=== PATIENT | male | born 1995 | race Caucasian/White ===

== ENCOUNTER 2019-04-02 06:04 | Inpatient (IN) | payer MEDICAID ==
[2019-04-02] VITALS (18 sets, daily range): BP systolic 99–146; BP diastolic 60–109; Ht 170.2 cm; Wt 57.1 kg
[~2019-04-02] VITALS: Ht 170.2 cm; Wt 57.1 kg
[2019-04-02] MEDS ORDERED: PROZAC10 MG PO (07:20)
[2019-04-02] MEDS ORDERED: ACETAMINOPHEN500 M1 PO (07:21)
[2019-04-02] MEDS ORDERED: ADVIL200 MG PO (07:22)
[2019-04-02] MEDS ORDERED: DIPHEDRYL25 MG PO (07:23)
[2019-04-02 07:39] LABS: HEMATOCRIT 40.5 % (42.0-54.0); HEMOGLOBIN 14.1 g/dL (13.5-17.5); MCH 30.1 pg (26.0-34.0); MCHC 34.8 g/dL (31.0-37.0); MCV 86.5 fL (80.0-100.0); MEAN PLATELET VOLUME 9.5 fL (7.4-10.4); PLATELET COUNT 192 10x3/uL (130-400); RBC 4.68 10x6/uL (4.20-6.10); RDW 13.1 % (11.5-14.5); WBC 14.5 10x3/uL (4.8-10.8)
[2019-04-02 07:41] LABS: ALBUMIN 3.7 g/dL (3.4-5.0); ANION GAP 15.7 mmol/L (8-16); BILIRUBIN - TOTAL 0.71 mg/dL (0.2-1.3); CALCIUM 7.8 mg/dL (8.5-10.1); CREATININE - SERUM 1.3 mg/dL (0.6-1.3); MAGNESIUM - SERUM 1.7 mg/dL (1.8-2.4); POTASSIUM - SERUM 3.7 mmol/L (3.5-5.1); PROTEIN - SERUM 6.9 g/dL (6.4-8.2)
[2019-04-02 07:48] LABS: APTT 27.4 SECONDS (22.8-39.4); INR 1.04 (0.85-1.17); PROTIME 13.1 SECONDS (11.6-15.0)
[2019-04-02 08:15] LABS: LYMPHOCYTES 12 % (15-50); MONOCYTES 6 % (2-11); NEUTROPHILS 79 % (40-80); PLATELET ESTIMATE NORMAL
--- NOTE | 2019-04-02 08:40 | NUR ---
POISON CONTROL CALLED GIVEN UPDATE NEW ORDERS RECIEVED. DR PAULINO CALLED GIVEN UDPATE WHAT POISON COLTROL STATED, NEW ORDERS RECEIVED. WILL ADM.
--- NOTE | 2019-04-02 10:30 | NUR ---
PT TO CT VIA HOSPITAL STAFF
--- NOTE | 2019-04-02 11:13 | NUR ---
PHONE CALL RECEIVED FROM WOMAN STATING "I AM SHERRIE GOVEA AND I AM NEEDING AN UPDATE." YOAV CHANCE STATED I CANNOT CONFIRM OR DENY IF I HAVE A PATIENT BY THAT NAME. WOMAN ON PHONE STATED SHE KNEW PT WAS IN ER AND TRANSFERED TO ICU. YOAV CHANCE STATED AT THAT TIME, I CANNOT CONFIRM OR DENY IF WE HAVE A PT BY THAT NAME, THE BEST ADVICE I CAN GIVE YOU IF YOU NO YOU HAVE HAD A LOVED ONE COME THROUGH OUR ER IS TO CALL NEXT OF KIN IF SOMEONE BROUGHT THE PATIENT IN. AT THIS TIME WOMAN STATED SHERRIE'S MOM IS NOT ANSWERING HER PHONE AND SHE JUST WANTED TO NO IF PT WAS ALIVE OR NOT. YOAV CHANCE STATED AGAIN I CANNOT COMFIRM OR DENY IF I HAVE A PT BY THAT NAME. AT THIS POINT WOMAN HUNG UP THE PHONE. PHONE CONFERSATION WITNESSED BY SURAJ CHANCE.
--- NOTE | 2019-04-02 12:43 | NUR ---
PT MOTHER AT BEDSIDE, PT MOTHER HAS MITZY ON OWN PERSONAL CELL PHONE. YOAV CHANCE AND DR PAULINO ATTEMPTED TO GIVE MOTHER UPDATE ON FAMILY MEMBER, MOTHER AND MITZY GOT AGGITATED WHEN DR PAULINO WAS TRYING TO EXPLAIN NOT TO ENABLE PT WHEN COMING OUT OF THIS OVERDOSE AND HE WOULD NEED HELP FROM ANOTHER FACILITY AND PER OUR POLICY WE DO NOT ALLOW VISITORS WITH OVERDOSE PATIENTS. MITZY YELLED AT DR PAULINO THROUGH THE PHONE CALLING HIM A "FUCKING ASSHOLE" AND OTHER PROFANITY. AT THIS TIME THE MOTHER STORMED OUT OF THE DOOR INTO DR PAULINO'S FACE DEMANDING HIS NAME AND SNATCHED HIS BADGE FROM HIS UNIFORM. THIS WAS WITNESSED BY YOAV CHANCE AND BIONCA RN. MOTHER WAS TOLD PER POLICY AT THIS TIME SHE WAS NO LONGER ALLOWED IN UNIT. MOTHER LEFT UNIT AT THIS TIME. UNIT DOORS LOCKED.
--- NOTE | 2019-04-02 15:00 | NUR ---
REASESSMENT COMPLETE, SEE CHART. VSS. WILL CONTINUE TO MONITOR
--- NOTE | 2019-04-02 17:07 | NUR ---
VSS, ORAL CARE COMPLETE.
--- NOTE | 2019-04-02 19:00 | NUR ---
REPORT RECEIVED, CARE ASSUMED. PT IS IN BED INTUBATED AND SEDATED. PT REPOSITIONED FOR COMFORT. ORAL CARE PERFORMED. INITIAL ASSESSMENT COMPLETED, SEE FLOWSHEET FOR DETAILS. NO NEEDS NOTED AT THIS TIME. WILL CONTINUE TO MONITOR.
--- NOTE | 2019-04-02 21:00 | NUR ---
PT IS LAYING IN BED INTUBATED AND SEDATED. PT REPOSITIONED FOR COMFORT. ORAL CARE PERFORMED. NO FURTHER NEEDS NOTED AT THIS TIME. NO SIGNS OF ACUTE DISTRESS. WILL CONTINUE TO MONITOR.
--- NOTE | 2019-04-02 23:00 | NUR ---
REASSESSMENT COMPLETED, SEE FLOWSHEET FOR DETAILS. PT IS LAYING IN BED INTUBATED AND SEDATED AT THIS TIME. PT REPOSITIONED FOR COMFORT. NO SIGNS OF ACUTE DISTRESS NOTED. WILL CONTINUE TO MONITOR.
[2019-04-03] VITALS (24 sets, daily range): BP systolic 113–157; BP diastolic 71–94
--- NOTE | 2019-04-03 01:00 | NUR ---
PT IS IN BED INTUBATED AND SEDATED. PT REPOSITIONED FOR COMFORT. ORAL CARE PERFORMED. NO FURTHER NEEDS NOTED. NO SIGNS OF ACUTE DISTRESS. WILL CONTINUE TO MONITOR.
--- NOTE | 2019-04-03 03:00 | NUR ---
REASSESSMENT COMPLETED, SEE FLOWSHEET FOR DETAILS. PT IS IN BED INTUBATED AND SEDATED. PT REPOSITIONED FOR COMFORT. ORAL CARE PERFORMED. NO FURTHER NEEDS NOTED AT THIS TIME. NO SIGNS OF ACUTE DISTRESS. WILL CONTINUE TO MONITOR.
[2019-04-03 04:27] LABS: BASOPHILS 0.1 % (0-2); EOSINOPHILS 0.4 % (0-7); HEMATOCRIT 34.1 % (42.0-54.0); HEMOGLOBIN 11.8 g/dL (13.5-17.5); IMMATURE GRANULOCYTES 0.3 % (0-5); LYMPHOCYTES 10.5 % (15-50); MCH 29.6 pg (26.0-34.0); MCHC 34.6 g/dL (31.0-37.0); MCV 85.7 fL (80.0-100.0); MEAN PLATELET VOLUME 9.9 fL (7.4-10.4); MONOCYTES 6.9 % (2-11); NEUTROPHILS 81.8 % (40-80); PLATELET COUNT 184 10x3/uL (130-400); RBC 3.98 10x6/uL (4.20-6.10); RDW 13.3 % (11.5-14.5); WBC 12.4 10x3/uL (4.8-10.8)
[2019-04-03 04:52] LABS: ANION GAP 10.7 mmol/L (8-16); CALCIUM 7.6 mg/dL (8.5-10.1); CARBON DIOXIDE 31.2 mmol/L (21.0-32.0); CREATININE - SERUM 1.4 mg/dL (0.6-1.3); MAGNESIUM - SERUM 1.7 mg/dL (1.8-2.4); PHOSPHOROUS 4.4 mg/dL (2.5-4.9)
[2019-04-03 04:53] LABS: POTASSIUM - SERUM 2.9 mmol/L (3.5-5.1)
--- NOTE | 2019-04-03 07:00 | NUR ---
BEDSIDE SHIFT REPORT COMPLETE. SHIFT ASSESSMENT AND ORAL CARE DONE, NO CHANGES NOTED. WILL CONTINUE TO MONITOR.
[2019-04-03] MEDS ORDERED: GEODON20 MG PO (07:38)
--- NOTE | 2019-04-03 09:00 | NUR ---
MEDS GIVEN PER MAR. ORAL CARE AND REPOSITIONING DONE, VSS. WILL CONTINUE TO MONITOR.
[2019-04-03 10:16] LABS: UDS - AMPHET NEGATIVE QUAL (NEGATIVE); UDS - BARB NEGATIVE QUAL (NEGATIVE); UDS - BENZO POSITIVE QUAL (NEGATIVE); UDS - COCAINE NEGATIVE QUAL (NEGATIVE); UDS - OPIATE NEGATIVE QUAL (NEGATIVE); UDS - PCP NEGATIVE QUAL (NEGATIVE); UDS - THC NEGATIVE QUAL (NEGATIVE)
[2019-04-03 10:52] LABS: APPEARANCE CLEAR (CLEAR); BACTERIA FEW /hpf (NONE SEEN); BILIRUBIN NEGATIVE (NEGATIVE); COLOR YELLOW (YELLOW); EPITHELIAL CELLS 0-5 /hpf (0-5); GLUCOSE NEGATIVE (NEGATIVE); KETONE SMALL mg/dL (NEGATIVE); NITRITE NEGATIVE (NEGATIVE); PROTEIN NEGATIVE (NEGATIVE); UROBILINOGEN NORMAL (NORMAL); WHITE CELLS - URINE 0-5 /hpf (0-5)
[2019-04-03 10:55] LABS: MUCUS <1+ /lpf (NONE SEEN)
--- NOTE | 2019-04-03 11:00 | NUR ---
REASESSMENT COMPLETE, SEE CHART. VSS. WILL CONTINUE TO MONITOR.
--- NOTE | 2019-04-03 11:30 | NUR ---
DR DAMIAN AT BEDSIDE, NEW ORDERS GIVEN.
--- NOTE | 2019-04-03 13:00 | NUR ---
ORAL CARE AND REPOSITIONING DONE. VSS.
--- NOTE | 2019-04-03 13:25 | NUR ---
PT EXTUBATED PER ORDERS, RT AT BEDSIDE. NO ISSUES. WILL CONTINUE TO MONITOR.
--- NOTE | 2019-04-03 14:32 | NUR ---
PT ASSESSED A HIGH RISK AND RESULTS REVIEWED WITH DR. WHELAN AND CHARGE NURSE. SITTER ORDERED FOR SUICIDE WATCH. SAFETY PLAN COMPLETED AND RESOURCES GIVEN. PT TO BE PLACED IN PAPERSCRUBS AND SAFETY PRECAUTIONS IN PLACE. PT WAS BEING MONITORED BY A NURSE WHEN I ARRIVED TO DO ASSESSMENT.
--- NOTE | 2019-04-03 15:00 | NUR ---
REASSESSMENT COMPLETE, SEE CHART. O2 SAT 97 ON 3L NC. VSS.
--- NOTE | 2019-04-03 17:00 | NUR ---
L HAND PERIPHERAL AND L AC PERIPHERAL IV SALINE LOCKED. SITTER AT BEDSIDE. VSS. WILL MONITOR.
--- NOTE | 2019-04-03 19:00 | NUR ---
PT SETTING UP TO BEDISDE EATING SOME SUPPER, NO DISTRESS NOTED AT THIS TIWE
--- NOTE | 2019-04-03 19:03 | MORECARE ---
CASE MANAGEMENT DISCHARGE SUMMARY PATIENT: SHERRIE SZYMANSKI UNIT: [id number] ADM DATE: 04/02/19 AGE: 23 : [birth year] SEX: M ROOM/BED: D.2304 AUTHOR: NANCI COOK PHYSICIAN: REFERRING PHYSICIAN: GARRETT TOTH MD DATE OF SERVICE: 04/03/19 Discharge Plan Patient Name: SHERRIE SZYMANSKI [facility] [facility] 1995 Planned Disposition: Anticipated Discharge Date: Discharge Date: Expected LOS: Initial Reviewer: [email or web address] Initial Review Date: 04/02/2019 Generated: 04/03/19 8:03 pm Patient Name: SHERRIE SZYMANSKI Page [id number] at 1903 All edits/amendments must be made on the electronic document DICTATION DATE: 04/03/191902 MACHINE ACCOUNTANT: PRUDENCIO 04/03/191902 RPT#: [id number] DC DATE: STATUS: ADM IN [facility] [address] [place] [address] END OF REPORT
--- NOTE | 2019-04-03 19:11 | NUR ---
PT CONTINUES TO BE TEARFUL AND DEPRESSED. PT STATED, "I THOUGHT I HAD TAKEN ENOUGH PILLS TO END IT." REVIEWED COPING SKILLS WITH PT AND DISCUSSED HIS FAMILY AND DAUGHTER. REVIEWED SAFETY PLAN AND PT CONTRACTED FOR SAFETY. SITTER AT BEDSIDE.
--- NOTE | 2019-04-03 19:16 | MORECARE ---
CASE MANAGEMENT DISCHARGE SUMMARY PATIENT: SHERRIE SZYMANSKI UNIT: [id number] ADM DATE: 04/02/19 AGE: 23 : [birth year] SEX: M ROOM/BED: D.2304 AUTHOR: NANCI COOK PHYSICIAN: REFERRING PHYSICIAN: GARRETT TOTH MD DATE OF SERVICE: 04/03/19 Discharge Plan Patient Name: SHERRIE SZYMANSKI Facility: [facility]:[place] : 1995 Planned Disposition: Anticipated Discharge Date: Discharge Date: Expected LOS: Initial Reviewer: [email or web address] Initial Review Date: 04/02/2019 Generated: 04/03/19 8:16 pm Comments DCP- Discharge Planning Updated by [email or web address]: Latonia Licea on 04/03/19 6:[address] CM attempted to speak with patient post extubation earlier today. Patient wasn't able to answer any questions regarding address or living situation. There isn't any phone numbers listed on face sheet and patient is unable to give any phone numbers of contacts. Patient states that his stuff is missing and that is where his contacts are. Patient couldn't tell CM if he has insurance or not. Nursing stated that patient's mother and have been in to visit. CM will continue to attempt to get with family to finish d/c plan. CM will continue to follow and assist as needed with discharge planning / needs. Last DP export: 04/03/19 6:03 p Patient Name: SHERRIE SZYMANSKI Page [phone] at 1916 All edits/amendments must be made on the electronic document DICTATION DATE: 04/03/191915 FOOTWEAR SALES REPRESENTATIVE: PRUDENCIO 04/03/191915 RPT#: [id number] DC DATE: STATUS: ADM IN [facility] [address] [facility] [place] [address] END OF REPORT
--- NOTE | 2019-04-03 21:00 | NUR ---
PT RESTING IN BED WITH EYES CLOSED, PT AWAKES TO NAME AND FOLLOWING COMMANDS, NO DISTRESS NOTED AT THIS TIME
--- NOTE | 2019-04-03 23:00 | NUR ---
PT RESTING WITH EYES CLOSED NO DISTRESS NOTED
[2019-04-04] VITALS (17 sets, daily range): BP systolic 127–145; BP diastolic 65–106
--- NOTE | 2019-04-04 01:00 | NUR ---
PT SITTING UP IN BED GETTING A BREATHING TREATMENT. RESP EVEN NON LABORED, NO DISTRESS NOTED
[2019-04-04 04:36] LABS: BASOPHILS 0.3 % (0-2); EOSINOPHILS 1.3 % (0-7); HEMATOCRIT 32.4 % (42.0-54.0); HEMOGLOBIN 11.1 g/dL (13.5-17.5); IMMATURE GRANULOCYTES 0.2 % (0-5); MCHC 34.3 g/dL (31.0-37.0); MCV 87.6 fL (80.0-100.0); MEAN PLATELET VOLUME 9.8 fL (7.4-10.4); MONOCYTES 8.7 % (2-11); NEUTROPHILS 77.5 % (40-80); PLATELET COUNT 159 10x3/uL (130-400); RDW 13.6 % (11.5-14.5); WBC 11.9 10x3/uL (4.8-10.8)
[2019-04-04 05:01] LABS: CALCIUM 8.1 mg/dL (8.5-10.1); CARBON DIOXIDE 26.7 mmol/L (21.0-32.0); CHLORIDE - SERUM 103 mmol/L (98-107); MAGNESIUM - SERUM 1.9 mg/dL (1.8-2.4); POTASSIUM - SERUM 3.5 mmol/L (3.5-5.1); SODIUM 137 mmol/L (136-145)
[2019-04-04 05:18] LABS: CALC OSMOLALITY 271 mosm/kg (275-300); CREATININE - SERUM 0.9 mg/dL (0.6-1.3); GLUCOSE 98 mg/dL (74-106); UREA NITROGEN 6 mg/dL (7-18); eGFR NON AFRICAN AMERICAN > 90 mL/min (90-120)
--- NOTE | 2019-04-04 07:00 | NUR ---
BEDSIDE REPORT COMPLETE. SHIFT ASSESSMENT AND ORAL CARE DONE. PT IN BED RESTING QUIETLY, SITTER AT BEDSIDE. VSS. CALL LIGHT IN REACH.
--- NOTE | 2019-04-04 09:00 | NUR ---
D/C'D L AC PERIPHERAL IV DUE TO OCCLUSION. RESITED TO L FOREARM PERIPHERAL. MEDS GIVEN PER NOV. VSS, PT RESTING QUIETLY. SITTER AT BEDSIDE.
--- NOTE | 2019-04-04 11:00 | NUR ---
CHG BATH, LINEN CHANGE, AND ORAL CARE COMPLETE. PAPER SCRUBS PROVIDED.
--- NOTE | 2019-04-04 12:08 | NUR ---
Nutrition follow-up: Pt extubated 04/03; diet advanced to regular as tolerated Wt: 125# labs reviewed Will provide food choices with selective menus and honor food preferences. RDN following.
--- NOTE | 2019-04-04 13:11 | NUR ---
PATIENT IN BED RESTING QUIETLY, I OFFERED HIM HIS LUNCH TRAY AND HE DOES NOT WANT IT. SITTER AT BEDSIDE, WILL CONTINUE TO MONITOR.
--- NOTE | 2019-04-04 15:00 | NUR ---
PATIENT REFUSES TO EAT ANYTHING, HE STATES HE IS TOO TIRED AND JUST WANTS TO SLEEP. VSS. SITTER AT BEDSIDE.
--- NOTE | 2019-04-04 17:00 | NUR ---
PT SITTING UP IN CHAIR, ATE 100% OF DINNER. SITTER AT BEDSIDE
--- NOTE | 2019-04-04 17:57 | MORECARE ---
CASE MANAGEMENT DISCHARGE SUMMARY PATIENT: SHERRIE SZYMANSKI UNIT: [id number] ADM DATE: 04/02/19 AGE: 23 : [birth year] SEX: M ROOM/BED: D.2304 AUTHOR: NANCI COOK PHYSICIAN: REFERRING PHYSICIAN: GARRETT TOTH MD DATE OF SERVICE: 04/04/19 Discharge Plan Patient Name: SHERRIE SZYMANSKI Facility: [facility]:[place] : 1995 Planned Disposition: Anticipated Discharge Date: Discharge Date: Expected LOS: Initial Reviewer: [email or web address] Initial Review Date: 04/02/2019 Generated: 04/04/19 6:57 pm Comments DCP- Discharge Planning Updated by [email or web address]: Latonia Licea on 04/04/19 4:[address] CM contacted [employer] to see if they have been able to get any information from patient. Stefano stated that they haven't got any information either. Patient wasn't able to give any information to them either. Speech is garbled. CM has been trying to reach family but unable to get in contact with anyone. Patient couldn't give a name or number to call at this time.CM will continue to follow and assist as needed with discharge planning / needs. DCP- Discharge Planning Updated by [email or web address]: Latonia Licea on 04/03/19 6:[address] CM attempted to speak with patient post extubation earlier today. Patient wasn't able to answer any questions regarding address or living situation. There isn't any phone numbers listed on face sheet and patient is unable to give any phone numbers of contacts. Patient states that his stuff is missing and that is where his contacts are. Patient couldn't tell CM if he has insurance or not. Nursing stated that patient's mother and have been in to visit. CM will continue to attempt to get with family to finish d/c plan. CM will continue to follow and assist as needed with discharge planning / needs. Last DP export: 04/03/19 6:16 p Patient Name: SHERRIE SZYMANSKI Page [phone] at 1754 All edits/amendments must be made on the electronic document DICTATION DATE: 04/04/191756 HOTEL OR MOTEL ROOM SERVICE SUPERVISOR: PRUDENCIO 04/04/191756 RPT#: [id number] [place] DATE: STATUS: ADM IN [facility] [address] [place] [address] END OF REPORT
--- NOTE | 2019-04-04 19:00 | NUR ---
PT SITTING UP IN A CHAIR AT THE BEDSIDE. PT IS ALERT AND AWAKE. RESP EVEN NON LABORED. PT ADVISED THAT HE DOING OKAY, BUT IS STIFF AND SORE ALL OVER. PT INFORMED THAT HE WAS GOING TO BE MOVED TO A DIFFERENT ROOM SOON. PT VERBALIZED UNDERSTANDING
--- NOTE | 2019-04-04 20:06 | NUR ---
PT REPORT CALLED TO MERON ORTIZ. PT TO BE TRANSFERRED TO THE FLOOR VIA W/C
[2019-04-05 00:49] VITALS: BP 117/71
[2019-04-05 05:57] VITALS: BP 109/80
[2019-04-05 06:51] LABS: BASOPHILS 0.5 % (0-2); EOSINOPHILS 6.4 % (0-7); HEMATOCRIT 35.4 % (42.0-54.0); HEMOGLOBIN 11.9 g/dL (13.5-17.5); IMMATURE GRANULOCYTES 0.3 % (0-5); LYMPHOCYTES 23.4 % (15-50); MCH 29.5 pg (26.0-34.0); MCHC 33.6 g/dL (31.0-37.0); MCV 87.8 fL (80.0-100.0); MEAN PLATELET VOLUME 9.7 fL (7.4-10.4); MONOCYTES 10.4 % (2-11); PLATELET COUNT 163 10x3/uL (130-400); RBC 4.03 10x6/uL (4.20-6.10); RDW 13.3 % (11.5-14.5)
[2019-04-05 06:58] LABS: CALC OSMOLALITY 277 mosm/kg (275-300); CALCIUM 8.6 mg/dL (8.5-10.1); CHLORIDE - SERUM 103 mmol/L (98-107); CREATININE - SERUM 0.9 mg/dL (0.6-1.3); GLUCOSE 124 mg/dL (74-106); POTASSIUM - SERUM 3.6 mmol/L (3.5-5.1); SODIUM 139 mmol/L (136-145); eGFR NON AFRICAN AMERICAN > 90 mL/min (90-120)
[2019-04-05 07:00] LABS: UREA NITROGEN 9 mg/dL (7-18)
[2019-04-05 07:03] LABS: WBC 7.9 10x3/uL (4.8-10.8)
[2019-04-05 07:22] VITALS: BP 139/84
--- NOTE | 2019-04-05 07:30 | NUR ---
PT RESTING IN BED, SITTER PRESENT. PT COMPLAINS OF BACK PAIN AND REQUEST APAP. PRN APAP GIVEN ORDERED. SHIFT ASSESSMENT PERFORMED. DENIES ANY OTHER NEEDS. WILL CONT TO FOLLOW POC
--- NOTE | 2019-04-05 10:00 | NUR ---
PT MOM CALLED AND VERBAL APPROVAL GIVEN BY PT TO DISCUSS ANY INFORMATION WITH MOM.
--- NOTE | 2019-04-05 10:07 | MORECARE ---
CASE MANAGEMENT DISCHARGE SUMMARY PATIENT: SHERRIE SZYMANSKI UNIT: [id number] ADM DATE: 04/02/19 AGE: 23 : [birth year] SEX: M ROOM/BED: D.1209 AUTHOR: NANCI COOK PHYSICIAN: REFERRING PHYSICIAN: GARRETT TOTH MD DATE OF SERVICE: 04/05/19 Discharge Plan Patient Name: SHERRIE SZYMANSKI Facility: [facility]:[place] : 1995 Planned Disposition: Psych facility Anticipated Discharge Date: Discharge Date: Expected LOS: Initial Reviewer: [email or web address] Initial Review Date: 04/02/2019 Generated: 04/05/19 11:06 am DCP- Discharge Planning Updated by [email or web address]: Latonia Licea on 04/04/19 4:[address] CM contacted [employer] to see if they have been able to get any information from patient. Stefano stated that they haven't got any information either. Patient wasn't able to give any information to them either. Speech is garbled. CM has been trying to reach family but unable to get in contact with anyone. Patient couldn't give a name or number to call at this time.CM will continue to follow and assist as needed with discharge planning / needs. DCP- Discharge Planning Updated by [email or web address]: Latonia Licea on 04/03/19 6:[address] CM attempted to speak with patient post extubation earlier today. Patient wasn't able to answer any questions regarding address or living situation. There isn't any phone numbers listed on face sheet and patient is unable to give any phone numbers of contacts. Patient states that his stuff is missing and that is where his contacts are. Patient couldn't tell CM if he has insurance or not. Nursing stated that patient's mother and have been in to visit. CM will continue to attempt to get with family to finish d/c plan. CM will continue to follow and assist as needed with discharge planning / needs. Last DP export: 04/04/19 4:57 p Patient Name: SHERRIE SZYMANSKI Page [phone] at 1007 All edits/amendments must be made on the electronic document DICTATION DATE: 04/05/19 100 SURVEY CHIEF: PRUDENCIO 04/05/19 100 RPT#: [id number] [place] DATE: STATUS: ADM IN [facility] [address] [place] [address] END OF REPORT
--- NOTE | 2019-04-05 10:39 | MORECARE ---
CASE MANAGEMENT DISCHARGE SUMMARY PATIENT: SHERRIE SZYMANSKI UNIT: [id number] ADM DATE: 04/02/19 AGE: 23 : [birth year] SEX: M ROOM/BED: D.1209 AUTHOR: NANCI COOK PHYSICIAN: REFERRING PHYSICIAN: GARRETT TOTH MD DATE OF SERVICE: 04/05/19 Discharge Plan Patient Name: SHERRIE SZYMANSKI Facility: [facility]:[place] : 1995 Planned Disposition: Psych facility Anticipated Discharge Date: Discharge Date: Expected LOS: Initial Reviewer: [email or web address] Initial Review Date: 04/02/2019 Generated: 04/05/19 11:39 am Comments DCP- Discharge Planning Updated by [email or web address]: Farhana Keller on 04/05/19 9:[address] TELEPHONE CALL TO [employer]. LEFT A VOICEMAIL AT 1434 REGARDING CONTACT PHONE NUMBERS FOR ASSISTANCE AND INFORMATION. CM ADVISED THE MOTHER THAT [employer] MAY CONTACT HER. DCP- Discharge Planning Updated by [email or web address]: Farhana Keller on 04/05/19 9:[address] CM HAS OBTAINED CONTACT PHONE NUMBERS FOR THE PATIENT'S AND HIS MOTHER. JAMA [phone] . SHE LIVES IN [facility], THEY HAVE BEEN FOR A FEW MONTH. SHE STATES HE HAS BEEN HOMELESS. THEY HAVE A TWO YEAR OLD DAUGHTER WHO IS WITH THE . THE PATIENT REPORTEDLY HAS HAD TWO PREVIOUS SUICIDE ATTEMPTS. SHE STATES HE DID NOT HAVE A PSYCHIATRIST OR COUNSELOR. HE WAS REPORTEDLY ON PROZAC. HE IS A SMOKER. SHE DOES NOT KNOW OF ANY MEDICAL DIAGNOSIS. HE DID HAVE [facility] MEDICAID AT ONE TIME. CHRISTINE GONZALEZ - [phone]- MOTHER 1013 HIS MOTHER CALLED THE NURSE'S STATION TO SPEAK WITH THE NURSE ABOUT HIS STATUS. CM WAS ABLE TO SPEAK WITH HER. SHE HAD JUST PICKED HIM UP 2 DAYS PRIOR TO THIS INCIDENT. HE HAD BEEN IN [place], [place] AND HAD BEEN EVICTED. SHE LIVES AT [address] [place] [address] [place] [address]. SHE STATES SHE HAS HIS WALLET AND BELONGINGS. SHE WISHES FOR HIM TO RECEIVE SOME INPATIENT PSYCH HELP. SHE STATES SHE BROUGHT 2 PAIRS OF PANTS, 2 SHIRTS, A PACK OF NEW UNDERWEAR AND NEW SOCKS TO HIS HOSPITAL ROOM. SHE VERY MUCH WANTS HIM TO GET HELP. HE SEES SE[facility] AT A FAMILY CLINIC IN [place], [place]. SHE PRESCRIBES HIS PROZAC. THE NURSE AND CM EXPLAINED THE PATIENT MUST BE MEDICALLY STABLE BEFORE DISCHARGING TO A PSYCH FACILITY. EXPLAINED CM WILL FOLLOW TO ASSIST. W/ DISCHARGE PLANNING. THE MOTHER WAS VERY HELPFUL AND VERY CONCERNED ABOUT HIS WELL BEING. DCP- Discharge Planning Updated by [email or web address]: Latonia Licea on 04/04/19 4:[address] CM contacted [email or web address] to see if they have been able to get any information from patient. Stefano stated that they haven't got any information either. Patient wasn't able to give any information to them either. Speech is garbled. CM has been trying to reach family but unable to get in contact with anyone. Patient couldn't give a name or number to call at this time.CM will continue to follow and assist as needed with discharge planning / needs. DCP- Discharge Planning Updated by [email or web address]: Latonia Licea on 04/03/19 6:[address] CM attempted to speak with patient post extubation earlier today. Patient wasn't able to answer any questions regarding address or living situation. There isn't any phone numbers listed on face sheet and patient is unable to give any phone numbers of contacts. Patient states that his stuff is missing and that is where his contacts are. Patient couldn't tell CM if he has insurance or not. Nursing stated that patient's mother and have been in to visit. CM will continue to attempt to get with family to finish d/c plan. CM will continue to follow and assist as needed with discharge planning / needs. Last DP export: 04/05/19 9:07 a Patient Name: SHERRIE SZYMANSKI Page [phone] at 1039 All edits/amendments must be made on the electronic document DICTATION DATE: 04/05/19 1039 MANAGER PATIENT: PRUDENCIO 04/05/19 1039 RPT#: [id number] DC DATE: STATUS: ADM IN [facility] [address] [place] [address] END OF REPORT
[2019-04-05 11:10] VITALS: BP 124/76
--- NOTE | 2019-04-05 11:17 | NUR ---
PT RESTING IN BED, DENIES ANY NEEDS AT THIS TIME. WILL CONT TO FOLLOW POC
--- NOTE | 2019-04-05 13:45 | CN ---
PATIENT NAME:SHERRIE SZYMANSKI MEDICAL RECORD: [id number] : [birth year] LOCATION:D. D.1209 ADMIT DATE: 04/02/19 ACCOUNT: [id number] CONSULTING PHYSICIAN: LAST WHELAN MD REFERRING PHYSICIAN: GARRETT TOTH MD DATE OF CONSULTATION: 04/04/2019 IDENTIFYING DATA: The patient is 23 years old and he was admitted to the hospital on a voluntary basis. CHIEF COMPLAINT: Overdose. HISTORY OF PRESENT ILLNESS: The [place], [place] suppose [place]. Apparently, he was at a alliance party and took a large and number of medications. He was unresponsive and was brought to the Emergency Room in [place] and was shipped here for a higher level of care. He was given Narcan, but it was not effective. He was subsequently intubated. He did have a urine drug screen that was positive for benzodiazepines, but no opiates were present. The patient is now extubated. He is softly spoken and his throat is sore from the intubation, but he tells me that he fully intended to kill himself. He starts to cry. He tells me he has a lot of family and personal problems. He also tells me that he is not exactly sure what he took. He says he knows he took some sleeping medicine and some antidepressant medicine. He says he took a lot of pills and again it was with the full intention of dying. He says he still wants to . He is willing to accept some kind of assistance. He denies addiction to opiates. He denies addiction to any drugs or alcohol at this time, but does report a past psychiatric history that includes methamphetamine addiction as well as outpatient treatment for depression. ASSESSMENT: 1. Status post overdose. 2. Major depression. PLAN: Once stabilized, the patient should be transferred to acute inpatient psychiatric care. It is my understanding that he has upper left lobe pneumonia, probably associated with aspiration, but if that has resolved he should be transferred to acute inpatient psychiatric care and he is indeed willing to go. If he is going to require additional hospitalization to treat the pneumonia or any other condition I am not aware of, he does need to have a sitter. If he is here or pass tomorrow or still here tomorrow, I will order antidepressant medications. TRANSINT:[id number] Voice Confirmation ID: [id number] DOCUMENT ID: [id number] LAST WHELAN MD at 1345 CC: [id number] DICTATION DATE: 04/04/191710 KEY WORKER: 04/04/191947 ADM IN [facility] [address] [place] [address]
--- NOTE | 2019-04-05 17:00 | NUR ---
PT REQUEST TO TAKE A SHOWER. SITTER PRESENT IN ROOM TO ASSIST WITH SHOWER. WILL CONT TO FOLLOW POC
[2019-04-05 19:58] VITALS: BP 121/73
[2019-04-06] VITALS: BP 118/71
[2019-04-06 04:00] VITALS: BP 97/64
[2019-04-06 07:00] LABS: BASOPHILS 0.5 % (0-2); EOSINOPHILS 7.6 % (0-7); HEMATOCRIT 32.7 % (42.0-54.0); HEMOGLOBIN 10.9 g/dL (13.5-17.5); IMMATURE GRANULOCYTES 0.3 % (0-5); LYMPHOCYTES 28.5 % (15-50); MCH 29.6 pg (26.0-34.0); MCHC 33.3 g/dL (31.0-37.0); MCV 88.9 fL (80.0-100.0); MEAN PLATELET VOLUME 9.7 fL (7.4-10.4); MONOCYTES 8.8 % (2-11); NEUTROPHILS 54.3 % (40-80); PLATELET COUNT 166 10x3/uL (130-400); RBC 3.68 10x6/uL (4.20-6.10); RDW 13.2 % (11.5-14.5)
[2019-04-06 07:19] LABS: CALC OSMOLALITY 279 mosm/kg (275-300); CALCIUM 8.6 mg/dL (8.5-10.1); CARBON DIOXIDE 28.5 mmol/L (21.0-32.0); CHLORIDE - SERUM 106 mmol/L (98-107); CREATININE - SERUM 0.9 mg/dL (0.6-1.3); GLUCOSE 104 mg/dL (74-106); POTASSIUM - SERUM 3.8 mmol/L (3.5-5.1); SODIUM 141 mmol/L (136-145); UREA NITROGEN 11 mg/dL (7-18); eGFR NON AFRICAN AMERICAN > 90 mL/min (90-120)
[2019-04-06 08:00] VITALS: BP 132/76
--- NOTE | 2019-04-06 10:17 | NUR ---
PT ALERT AND ORIENTED. RR 14 EVEN AND UNLABORED. DENIES PAIN OR NEEDS AT THIS TIME. UP AD PADILLA. SITTER AT BEDSIDE PER SUICIDE RISK PROTOCOL. PT STATES HE "FEELS BETTER MENTALLY TODAY". ASSESSMENT COMPLETE. NO ABNORMALITIES FOUND. LEFT FOREARM PATENT IV SALINE LOCKED. ROOM CLEARED OF PARAPHERNALIA. WILL CONTINUE TO MONITOR.
--- NOTE | 2019-04-06 11:49 | NUR ---
I have reviewed this patient and I concur with the Shift Assessment completed by the Licensed Practical Nurse today this shift.
--- NOTE | 2019-04-06 12:39 | NUR ---
Nutrition Follow Up: Multiple staff present in room at the time of RD visit. Interview deferred at this time. Diet: Regular PO Intake: 61% meal avg (ate 75% of breakfast this am; po intake improving) BM: 04/05/19 Meds and labs reviewed Rec continue current diet. RD following.
[2019-04-06 13:34] VITALS: BP 122/81
[2019-04-06 20:00] VITALS: BP 119/68
[2019-04-07] VITALS: BP 121/75
[2019-04-07 04:00] VITALS: BP 104/71
[2019-04-07 06:37] LABS: BASOPHILS 0.5 % (0-2); EOSINOPHILS 7.9 % (0-7); HEMATOCRIT 36.6 % (42.0-54.0); HEMOGLOBIN 12.4 g/dL (13.5-17.5); IMMATURE GRANULOCYTES 0.6 % (0-5); MCH 29.8 pg (26.0-34.0); MCHC 33.9 g/dL (31.0-37.0); MEAN PLATELET VOLUME 9.4 fL (7.4-10.4); MONOCYTES 11.9 % (2-11); NEUTROPHILS 49.1 % (40-80); PLATELET COUNT 202 10x3/uL (130-400); RBC 4.16 10x6/uL (4.20-6.10); RDW 13.1 % (11.5-14.5); WBC 6.4 10x3/uL (4.8-10.8)
[2019-04-07 06:48] LABS: CALC OSMOLALITY 276 mosm/kg (275-300); CALCIUM 9.5 mg/dL (8.5-10.1); CHLORIDE - SERUM 102 mmol/L (98-107); CREATININE - SERUM 0.8 mg/dL (0.6-1.3); GLUCOSE 94 mg/dL (74-106); POTASSIUM - SERUM 3.7 mmol/L (3.5-5.1); SODIUM 138 mmol/L (136-145); eGFR NON AFRICAN AMERICAN > 90 mL/min (90-120)
[2019-04-07 06:49] LABS: UREA NITROGEN 15 mg/dL (7-18)
--- NOTE | 2019-04-07 07:27 | NUR ---
ROUNDING DONE WTIH PATIENT LAYING ON BACK, HEAD TO LEFT SIDE. SITTER AT BEDSIDE FOR 1/ CARE AND MONITORING. ON ROOM AIR. LEFT FA PIV SEEN WITH SALINE LOCK. ON EP. K+ IS 3.7. WILL MONITOR.
[2019-04-07 08:01] VITALS: BP 134/74
--- NOTE | 2019-04-07 09:44 | MORECARE ---
CASE MANAGEMENT DISCHARGE SUMMARY PATIENT: SHERRIE SZYMANSKI UNIT: [id number] ADM DATE: 04/02/19 AGE: 23 : [birth year] SEX: M ROOM/BED: D.1209 AUTHOR: NANCI COOK PHYSICIAN: REFERRING PHYSICIAN: GARRETT TOTH MD DATE OF SERVICE: 04/07/19 Discharge Plan Patient Name: SHERRIE SZYMANSKI Facility: [facility]:[place] : 1995 Planned Disposition: Psych facility Anticipated Discharge Date: Discharge Date: Expected LOS: Initial Reviewer: [id number] Initial Review Date: 04/02/2019 Generated: 04/07/19 10:43 am Comments DCP- Discharge Planning Updated by [email or web address]: Jennie Smith on 04/07/19 8:[address] Patient Name: SHERRIE SZYMANSKI Admission Status: ER Accout number: [id number] Admission Date: 04-02-2019 : 1995 Admission Diagnosis:PNEUMONITIS DUE TO INHALATION OF FOOD AND VOMIT Attending: GARRETT TOTH Current LOS: 5 Anticipated DC Date: Planned Disposition: Psych facility Primary Insurance: MEDICAID [place] PENDING Discharge Planning Comments: [facility] contacted and information faxed to assist with inpatient Psych placement. awaiting placement choices Claim Service Representative: Jennie Smith DCP- Discharge Planning Updated by [id number]: Farhana Keller on 04/05/19 9:[address] TELEPHONE CALL TO [employer]. LEFT A VOICEMAIL AT 1434 REGARDING CONTACT PHONE NUMBERS FOR ASSISTANCE AND INFORMATION. CM ADVISED THE MOTHER THAT [employer] MAY CONTACT HER. DCP- Discharge Planning Updated by [email or web address]: Farhana Keller on 04/05/19 9:[address] CM HAS OBTAINED CONTACT PHONE NUMBERS FOR THE PATIENT'S AND HIS MOTHER. JAMA [phone] . SHE LIVES IN [facility], THEY HAVE BEEN FOR A FEW MONTH. SHE STATES HE HAS BEEN HOMELESS. THEY HAVE A TWO YEAR OLD DAUGHTER WHO IS WITH THE . THE PATIENT REPORTEDLY HAS HAD TWO PREVIOUS SUICIDE ATTEMPTS. SHE STATES HE DID NOT HAVE A PSYCHIATRIST OR COUNSELOR. HE WAS REPORTEDLY ON PROZAC. HE IS A SMOKER. SHE DOES NOT KNOW OF ANY MEDICAL DIAGNOSIS. HE DID HAVE [place] MEDICAID AT ONE TIME. CHRISTINE GONZALEZ - [phone]- MOTHER 1013 HIS MOTHER CALLED THE NURSE'S STATION TO SPEAK WITH THE NURSE ABOUT HIS STATUS. CM WAS ABLE TO SPEAK WITH HER. SHE HAD JUST PICKED HIM UP 2 DAYS PRIOR TO THIS INCIDENT. HE HAD BEEN IN [place], [place] AND HAD BEEN EVICTED. SHE L[place]ES AT [address] [place] [address] [place] [address]. SHE STATES SHE HAS HIS WALLET AND BELONGINGS. SHE WISHES FOR HIM TO RECEIVE SOME INPATIENT PSYCH HELP. SHE STATES SHE BROUGHT 2 PAIRS OF PANTS, 2 SHIRTS, A PACK OF NEW UNDERWEAR AND NEW SOCKS TO HIS HOSPITAL ROOM. SHE VERY MUCH WANTS HIM TO GET HELP. HE SEES SEVEN RUSSELL AT A FAMILY CLINIC IN [place], [place]. SHE PRESCRIBES HIS PROZAC. THE NURSE AND CM EXPLAINED THE PATIENT MUST BE MEDICALLY STABLE BEFORE DISCHARGING TO A PSYCH FACILITY. EXPLAINED CM WILL FOLLOW TO ASSIST. W/ DISCHARGE PLANNING. THE MOTHER WAS VERY HELPFUL AND VERY CONCERNED ABOUT HIS WELL BEING. DCP- Discharge Planning Updated by [email or web address]: Latonia Licea on 04/04/19 4:[address] CM contacted [facility] [employer] [facility] to see if they have been able to get any information from patient. Stefano stated that they haven't got any information either. Patient wasn't able to give any information to them either. Speech is garbled. CM has been trying to reach family but unable to get in contact with anyone. Patient couldn't give a name or number to call at this time.CM will continue to follow and assist as needed with discharge planning / needs. DCP- Discharge Planning Updated by [id number]: Latonia Licea on 04/03/19 6:[address] CM attempted to speak with patient post extubation earlier today. Patient wasn't able to answer any questions regarding address or living situation. There isn't any phone numbers listed on face sheet and patient is unable to give any phone numbers of contacts. Patient states that his stuff is missing and that is where his contacts are. Patient couldn't tell CM if he has insurance or not. Nursing stated that patient's mother and have been in to visit. CM will continue to attempt to get with family to finish d/c plan. CM will continue to follow and assist as needed with discharge planning / needs. Last DP export: 04/05/19 9:39 a Patient Name: SHERRIE SZYMANSKI Page [phone] at 0944 All edits/amendments must be made on the electronic document DICTATION DATE: 04/07/19942 AUDITING CLERK: PRUDENCIO 04/07/19942 RPT#: [id number] DC DATE: STATUS: ADM IN [facility] [address] [place] [address] END OF REPORT
--- NOTE | 2019-04-07 11:16 | NUR ---
[facility] TO CALL AND STATE THEY HAVE RECEIVED THE PAPERWORK FOR TRANSFER. I CALLED FABY CHAUHAN FOR HER TO CALL AND TALK TO THEM. ([phone]).
[2019-04-07 11:36] VITALS: BP 128/60
--- NOTE | 2019-04-07 11:54 | NUR ---
IN ASSESSMENT EARILER, I FAILED TO MENTION A REDDENED AREA SEEN TO RIGHT BUTTOCK. BLANCHABLE. ENCOURAGED PATIENT TO LAY ON LEFT SIDE, BUTT PASTE APPLIED.
--- NOTE | 2019-04-07 12:42 | NUR ---
JAMA SZYMANSKI, TO CALL AND INQUIRE ON PATIENT.
--- NOTE | 2019-04-07 13:17 | NUR ---
WATCHING TV WHILE LAYING IN THE BED, SITTER 09/19 AT BEDSIDE. BOTH DENY NEEDS AT THIS TIME.
--- NOTE | 2019-04-07 13:34 | NUR ---
SITTING ON END OF BED LOOKING OUTSIDE. SITTER AT BEDSIDE. DENIES ANY NEEDS FOR FOOD OR DRINK.
[2019-04-07 15:34] VITALS: BP 113/65
--- NOTE | 2019-04-07 16:26 | NUR ---
CASSIA MULLEN RN UNIT MANAGER OF [facility] STATES THAT SHE JUST TALKED TO DR GERARD AND THAT THE SITTER CAN LEAVE AT SHIFT CHANGE AND NOT HAVE ANYMORE COVERAGE FOR 09/19. I CALLED [facility] MONITOR AND TOLD HER ABOUT THIS. SHE STATES THAT CASSIA TEXTED HER, AWAITING WRITTEN ORDER.
--- NOTE | 2019-04-07 19:15 | NUR ---
RCV`D PT FROM [facility]. WENT IN TO CHECK ON PT DURING SHIFT REPORT AND FOUND THE SITTER TO BE LEAVING. TOOK THE IV PUMP, MED SCANNER, ALARM CORDS, LIGHT CORDS, AND RESPIRATORY EQUIPMENT OUT OF ROOM. PT RESTING IN BED WATCHING TV WITH NO SIGNS OF DISTRESS. ATTITUDE IS PLEASANT AND EAGER TO HAVE CONVERSATION WITH ME ABOUT HIS 4 YEAR OLD DAUGHTER. DENIES ANY NEEDS AT THIS TIME. BED LOW, CALL LIGHT IS IN REACH, RAILS UP X 2. WILL CONTINUE TO MONITOR.
--- NOTE | 2019-04-07 19:54 | NUR ---
PATIENT RESTING IN BED WITH NO S/S OF DISTRESS AND DENIES NEEDS AT THIS TIME. VSS. PATIENT DENIES NEEDS AT THIS TIME. BED IN LOWEST POSITION AND CALL LIGHT WITHIN REACH. ENCOURAGED THE PATIENT TO CALL IF HE HAS NEEDS. WILL CONTINUE TO MONITOR.
[2019-04-07 20:05] VITALS: BP 120/72
--- NOTE | 2019-04-07 21:30 | NUR ---
PT RESTING IN BED NO S/S OF DISTRESS, REMOVED IV PUMP AFTER STANISLAW IS FINISHED RUNNING. REQUESTING TYLENOL FOR PAIN ON HIS TOE, ADMINISTERED PER DRS ORDERS. PT TOLD ME HOW HE IS READY TO GET OUT AND DO BETTER FOR HIMSELF, AND THAT HE HAS A FRIEND THAT IS GOING TO HELP HIM GET BACK ON HIS FEET AGAIN AND HE IS FEELING POSITIVE ABOUT HIS FUTURE. DENIES ANY FURTHER NEEDS AT THIS TIME, WILL CONTINUE TO MONITOR. BED LOW, RAILS UP X 2, CALL LIGHT IN REACH.
--- NOTE | 2019-04-07 22:39 | NUR ---
PATIENT RESTING IN BED WITH EYES CLOSED AND NO S/S OF DISTRESS. BED IN LOWEST POSITION AND CALL LIGHT WITHIN REACH. WILL CONTINUE TO MONITOR.
--- NOTE | 2019-04-07 23:30 | NUR ---
PT ASLEEP IN BED , NO SIGNS OF DISTRESS. WILL CONTINUE TO MONITOR.
[2019-04-08 01:08] VITALS: BP 120/68
--- NOTE | 2019-04-08 01:14 | NUR ---
REFUSED RESPIRATORY TREATMENT.
[2019-04-08 04:00] VITALS: BP 113/75
--- NOTE | 2019-04-08 07:12 | NUR ---
AM ROUNDING DONE WITH PATIENT LAYING ON BACK, HEAD TO LEFT SIDE. RESP ARE EVEN. LEFT FA PIV SEEN WITH SALINE LOCK. NO CORDS OR MATERIALS IN ROOM FOR SELF HARM EXCEPT CALL LIGHT WHICH IS IN VIEW. WILL CONTINUE TO MONITOR.
[2019-04-08 07:43] VITALS: BP 119/66
--- NOTE | 2019-04-08 07:49 | NUR ---
PATIENT ROLLED OVER BACK TO SLEEP PAST BREAKFAST, STATES THAT HE DID NOT SLEEP WELL LAST NIGHT. CALL LIGHT AT BEDSIDE.
--- NOTE | 2019-04-08 09:43 | NUR ---
DENIES NEEDS AT THIS TIME. WATCHING TV.
[2019-04-08 11:19] VITALS: BP 125/65
--- NOTE | 2019-04-08 11:46 | NUR ---
DENIES NEEDS AT THIS TIME. SITTING IN BED WATCHING TV, STATES HE IS WAITING FOR LUNCH.
--- NOTE | 2019-04-08 12:31 | MORECARE ---
CASE MANAGEMENT DISCHARGE SUMMARY PATIENT: SHERRIE SZYMANSKI UNIT: [id number] ADM DATE: 04/02/19 AGE: 23 : [birth year] SEX: M ROOM/BED: D.1209 AUTHOR: JOEY,DOC PHYSICIAN: REFERRING PHYSICIAN: GARRETT TOTH MD DATE OF SERVICE: 04/08/19 Discharge Plan Patient Name: SHERRIE SZYMANSKI Facility: [facility]:[place] : 1995 Planned Disposition: Psych facility Anticipated Discharge Date: Discharge Date: Expected LOS: Initial Reviewer: [id number] Initial Review Date: 04/02/2019 Generated: 04/08/19 1:31 pm Comments DCP- Discharge Planning Updated by [id number]: Jennie Smith on 04/08/19 11:[address] Patient Name: SHERRIE SZYMANSKI Admission Status: ER Accout number: [id number] Admission Date: 04-02-2019 : 1995 Admission Diagnosis:PNEUMONITIS DUE TO INHALATION OF FOOD AND VOMIT Attending: GARRETT TOTH Current LOS: 6 Anticipated DC Date: Planned Disposition: Psych facility Primary Insurance: MEDICAID [place] PENDING Discharge Planning Comments: [facility] CALLED AND [facility] HAVE NO BEDS AND SEVERAL OTHERS HAVE DENIED PLACEMENT. [facility] STATED ONCE ON PO KEPPRA THEY WILL RE EVAL.. INFORMATION SENT TO [facility] FOR RE EVAL. Location Director: Jennie Smith DCP- Discharge Planning Updated by [email or web address]: Jennie Smith on 04/07/19 8:[address] Patient Name: SHERRIE SZYMANSKI Admission Status: ER Accout number: [id number] Admission Date: 04-02-2019 : 1995 Admission Diagnosis:PNEUMONITIS DUE TO INHALATION OF FOOD AND VOMIT Attending: GARRETT TOTH Current LOS: 5 Anticipated DC Date: Planned Disposition: Psych facility Primary Insurance: MEDICAID [place] PENDING Discharge Planning Comments: [facility] contacted and information faxed to assist with inpatient Psych placement. awaiting placement choices Location Director: Jennie Smith DCP- Discharge Planning Updated by [id number]: Farhana Keller on 04/05/19 9:[address] TELEPHONE CALL TO [employer] LEFT A VOICEMAIL AT 1434 REGARDING CONTACT PHONE NUMBERS FOR ASSISTANCE AND INFORMATION. CM ADVISED THE MOTHER THAT [employer] MAY CONTACT HER. DCP- Discharge Planning Updated by [id number]: Farhana Keller on 04/05/19 9:[address] CM HAS OBTAINED CONTACT PHONE NUMBERS FOR THE PATIENT'S AND HIS MOTHER. JAMA [id number]-[phone]- . SHE LIVES IN [facility], THEY HAVE BEEN FOR A FEW MONTH. SHE STATES HE HAS BEEN HOMELESS. THEY HAVE A TWO YEAR OLD DAUGHTER WHO IS WITH THE . THE PATIENT REPORTEDLY HAS HAD TWO PREVIOUS SUICIDE ATTEMPTS. SHE STATES HE DID NOT HAVE A PSYCHIATRIST OR COUNSELOR. HE WAS REPORTEDLY ON PROZAC. HE IS A SMOKER. SHE DOES NOT KNOW OF ANY MEDICAL DIAGNOSIS. HE DID HAVE [facility] MEDICAID AT ONE TIME. CHRISTINE GONZALEZ - [phone]- MOTHER 1013 HIS MOTHER CALLED THE NURSE'S STATION TO SPEAK WITH THE NURSE ABOUT HIS STATUS. CM WAS ABLE TO SPEAK WITH HER. SHE HAD JUST PICKED HIM UP 2 DAYS PRIOR TO THIS INCIDENT. HE HAD BEEN IN [place], [place] AND HAD BEEN EVICTED. SHE LIVES AT [address] [place] [address] [place] [address]. SHE STATES SHE HAS HIS WALLET AND BELONGINGS. SHE WISHES FOR HIM TO RECEIVE SOME INPATIENT PSYCH HELP. SHE STATES SHE BROUGHT 2 PAIRS OF PANTS, 2 SHIRTS, A PACK OF NEW UNDERWEAR AND NEW SOCKS TO HIS HOSPITAL ROOM. SHE VERY MUCH WANTS HIM TO GET HELP. HE SEES SEVEN RUSSELL AT A FAMILY CLINIC IN [place], [place]. SHE PRESCRIBES HIS PROZAC. THE NURSE AND CM EXPLAINED THE PATIENT MUST BE MEDICALLY STABLE BEFORE DISCHARGING TO A PSYCH FACILITY. EXPLAINED CM WILL FOLLOW TO ASSIST. W/ DISCHARGE PLANNING. THE MOTHER WAS VERY HELPFUL AND VERY CONCERNED ABOUT HIS WELL BEING. DCP- Discharge Planning Updated by [id number]: Latonia Licea on 04/04/19 4:[address] CM contacted [employer] to see if they have been able to get any information from patient. Stefano stated that they haven't got any information either. Patient wasn't able to give any information to them either. Speech is garbled. CM has been trying to reach family but unable to get in contact with anyone. Patient couldn't give a name or number to call at this time.CM will continue to follow and assist as needed with discharge planning / needs. DCP- Discharge Planning Updated by [id number]: Latonia Licea on 04/03/19 6:[address] CM attempted to speak with patient post extubation earlier today. Patient wasn't able to answer any questions regarding address or living situation. There isn't any phone numbers listed on face sheet and patient is unable to give any phone numbers of contacts. Patient states that his stuff is missing and that is where his contacts are. Patient couldn't tell CM if he has insurance or not. Nursing stated that patient's mother and have been in to visit. CM will continue to attempt to get with family to finish d/c plan. CM will continue to follow and assist as needed with discharge planning / needs. Last DP export: 04/07/19 8:44 a Patient Name: SHERRIE SZYMANSKI Page [phone] at 1231 All edits/amendments must be made on the electronic document DICTATION DATE: 04/08/19 1230 INSURANCE ADMINISTRATIVE ASSISTANT: PRUDENCIO 04/08/19 1230 RPT#: [id number] DC DATE: STATUS: ADM IN [facility] [address] [place] [address] END OF REPORT
--- NOTE | 2019-04-08 13:26 | NUR ---
WATCHING TV, DENIES NEEDS. JUST FINISHED UP A BREATHING TREATMENT.
--- NOTE | 2019-04-08 14:00 | MORECARE ---
CASE MANAGEMENT DISCHARGE SUMMARY PATIENT: SHERRIE SZYMANSKI UNIT: [id number] ADM DATE: 04/02/19 AGE: 23 : [birth year] SEX: M ROOM/BED: D.1209 AUTHOR: JOEY,DOC PHYSICIAN: REFERRING PHYSICIAN: GARRETT TOTH MD DATE OF SERVICE: 04/08/19 Discharge Plan Patient Name: SHERRIE SZYMANSKI Facility: [facility]:[place] : 1995 Planned Disposition: Psych facility Anticipated Discharge Date: Discharge Date: Expected LOS: Initial Reviewer: [id number] Initial Review Date: 04/02/2019 Generated: 04/08/19 3:00 pm Comments DCP- Discharge Planning Updated by [id number]: Jennie Smith on 04/08/19 12:[address] Patient Name: SHERRIE SZYMANSKI Admission Status: ER Accout number: [id number] Admission Date: 04-02-2019 : 1995 Admission Diagnosis:PNEUMONITIS DUE TO INHALATION OF FOOD AND VOMIT Attending: GARRETT TOTH Current LOS: 6 Anticipated DC Date: Planned Disposition: Psych facility Primary Insurance: MEDICAID [place] PENDING Discharge Planning Comments: STILL AWAITING PLACEMENT. [facility] WILL REEVAL WHEN PT HAS BEEN OFF THE KEPPRA AND NOTED TO HAVE BEEN FOR 24 HRS WELL NO SEIZURES WITHIN THE LAST 24 HRS. CM WILL CONTINUE TO FOLLOW Child Care Giver: Jennie Smith DCP- Discharge Planning Updated by [id number]: Jennie Smith on 04/08/19 11:[address] Patient Name: SHERRIE SZYMANSKI Admission Status: ER Accout number: [id number] Admission Date: 04-02-2019 : 1995 Admission Diagnosis:PNEUMONITIS DUE TO INHALATION OF FOOD AND VOMIT Attending: GARRETT TOTH Current LOS: 6 Anticipated DC Date: Planned Disposition: Psych facility Primary Insurance: MEDICAID [place] PENDING Discharge Planning Comments: [facility] CALLED AND [facility] HAVE NO BEDS AND SEVERAL OTHERS HAVE DENIED PLACEMENT. [facility] STATED ONCE ON PO KEPPRA THEY WILL RE EVAL.. INFORMATION SENT TO [facility] FOR RE EVAL. Child Care Giver: Jennie Smith DCP- Discharge Planning Updated by [email or web address]: Jennie Smith on 04/07/19 8:[address] Patient Name: SHERRIE SZYMANSKI Admission Status: ER Accout number: [id number] Admission Date: 04-02-2019 : 1995 Admission Diagnosis:PNEUMONITIS DUE TO INHALATION OF FOOD AND VOMIT Attending: GARRETT TOTH Current LOS: 5 Anticipated DC Date: Planned Disposition: Psych facility Primary Insurance: MEDICAID [place] PENDING Discharge Planning Comments: [facility] contacted and information faxed to assist with inpatient Psych placement. awaiting placement choices Child Care Giver: Jennie Smith DCP- Discharge Planning Updated by [id number]: Farhana Keller on 04/05/19 9:[address] TELEPHONE CALL TO [employer]. LEFT A VOICEMAIL AT 1434 REGARDING CONTACT PHONE NUMBERS FOR ASSISTANCE AND INFORMATION. CM ADVISED THE MOTHER THAT [employer] MAY CONTACT HER. DCP- Discharge Planning Updated by [id number]: Farhana Keller on 04/05/19 9:[address] CM HAS OBTAINED CONTACT PHONE NUMBERS FOR THE PATIENT'S AND HIS MOTHER. JAMA [id number]-[phone]- . SHE LIVES IN [facility], THEY HAVE BEEN FOR A FEW MONTH. SHE STATES HE HAS BEEN HOMELESS. THEY HAVE A TWO YEAR OLD DAUGHTER WHO IS WITH THE . THE PATIENT REPORTEDLY HAS HAD TWO PREVIOUS SUICIDE ATTEMPTS. SHE STATES HE DID NOT HAVE A PSYCHIATRIST OR COUNSELOR. HE WAS REPORTEDLY ON PROZAC. HE IS A SMOKER. SHE DOES NOT KNOW OF ANY MEDICAL DIAGNOSIS. HE DID HAVE [facility] MEDICAID AT ONE TIME. CHRISTINE LISA - [phone]- MOTHER 1013 HIS MOTHER CALLED THE NURSE'S STATION TO SPEAK WITH THE NURSE ABOUT HIS STATUS. FABY WAS ABLE TO SPEAK WITH HER. SHE HAD JUST PICKED HIM UP 2 DAYS PRIOR TO THIS INCIDENT. HE HAD BEEN IN [place], [place] AND HAD BEEN EVICTED. SHE LIVES AT [address] [place] [address] [place] [address]. SHE STATES SHE HAS HIS WALLET AND BELONGINGS. SHE WISHES FOR HIM TO RECEIVE SOME INPATIENT PSYCH HELP. SHE STATES SHE BROUGHT 2 PAIRS OF PANTS, 2 SHIRTS, A PACK OF NEW UNDERWEAR AND NEW SOCKS TO HIS HOSPITAL ROOM. SHE VERY MUCH WANTS HIM TO GET HELP. HE SEES SEVEN RUSSELL AT A FAMILY CLINIC IN [place] , [place]. SHE PRESCRIBES HIS PROZAC. THE NURSE AND CM EXPLAINED THE PATIENT MUST BE MEDICALLY STABLE BEFORE DISCHARGING TO A PSYCH FACILITY. EXPLAINED CM WILL FOLLOW TO ASSIST. W/ DISCHARGE PLANNING. THE MOTHER WAS VERY HELPFUL AND VERY CONCERNED ABOUT HIS WELL BEING. DCP- Discharge Planning Updated by [id number]: Latonia Licea on 04/04/19 4:[address] CM [facility] to see if they have been able to get any information from patient. Stefano stated that they haven't got any information either. Patient wasn't able to give any information to them either. Speech is garbled. CM has been trying to reach family but unable to get in contact with anyone. Patient couldn't give a name or number to call at this time.CM will continue to follow and assist as needed with discharge planning / needs. DCP- Discharge Planning Updated by [email or web address]: Latonia Licea on 04/03/19 6:[address] CM attempted to speak with patient post extubation earlier today. Patient wasn't able to answer any questions regarding address or living situation. There isn't any phone numbers listed on face sheet and patient is unable to give any phone numbers of contacts. Patient states that his stuff is missing and that is where his contacts are. Patient couldn't tell CM if he has insurance or not. Nursing stated that patient's mother and have been in to visit. CM will continue to attempt to get with family to finish d/c plan. CM will continue to follow and assist as needed with discharge planning / needs. Last DP export: 04/08/19 11:31 a Patient Name: SHERRIE SZYMANSKI Page [phone] at 1400 All edits/amendments must be made on the electronic document DICTATION DATE: 04/08/19 1355 NOVELTY DIPPER: PRUDENCIO 04/08/19 135 RPT#: [id number] DC DATE: STATUS: ADM IN [facility] [address] [place] [address] END OF REPORT
[2019-04-08 15:20] VITALS: BP 116/76
--- NOTE | 2019-04-08 17:36 | NUR ---
WATCHING TV, DENIES NEEDS. ICE CREAM OFFERED, GIVEN.
--- NOTE | 2019-04-08 19:14 | NUR ---
PATIENT RESTING IN BED WITH NO S/S OF DISTRESS AND DENIES NEEDS AT THIS TIME. BED IN LOWEST POSITION AND CALL LIGHT WITHIN REACH. ENCOURAGED THE PATIENT TO CALL IF HE HAS NEEDS. WILL CONTINUE TO MONITOR.
[2019-04-08 20:12] VITALS: BP 135/81
[2019-04-09 00:23] VITALS: BP 100/61
[2019-04-09 04:37] VITALS: BP 101/63
--- NOTE | 2019-04-09 07:30 | NUR ---
REQUESTED AND GIVEN 650 MG TYLENOL PO FOR C/O LEFT LITTLE TOE PAIN. WILL MONITOR. LUNGS ARE CLEAR BILATERALLY, NO COUGH NOTED. ALERT AND ORIENTED X3. SKIN IS INTACT WITHOUT REDNESS. SL TO LEFT FOREARM IS PATENT WITHOUT REDNESS AT INSERTION SITE. DENIES NEEDS.
[2019-04-09 07:35] VITALS: BP 106/71
--- NOTE | 2019-04-09 09:16 | NUR ---
Nutrition Follow-up: Pt reports good appetite/PO intake with no GI complaints. Diet: Regular PO intake: 81% avr meal intake BM: 04/07 No new wt Labs reviewed Meds noted: Protonix Rec continue current diet as tolerated. RD following.
[2019-04-09 11:21] LABS: BASOPHILS 0.4 % (0-2); EOSINOPHILS 4.7 % (0-7); HEMATOCRIT 38.6 % (42.0-54.0); HEMOGLOBIN 13.3 g/dL (13.5-17.5); IMMATURE GRANULOCYTES 1.5 % (0-5); LYMPHOCYTES 30.9 % (15-50); MCH 29.9 pg (26.0-34.0); MCHC 34.5 g/dL (31.0-37.0); MCV 86.7 fL (80.0-100.0); MEAN PLATELET VOLUME 9.4 fL (7.4-10.4); MONOCYTES 9.1 % (2-11); NEUTROPHILS 53.4 % (40-80); PLATELET COUNT 239 10x3/uL (130-400); RBC 4.45 10x6/uL (4.20-6.10); RDW 12.9 % (11.5-14.5); WBC 7.2 10x3/uL (4.8-10.8)
[2019-04-09 11:49] LABS: ALBUMIN 3.3 g/dL (3.4-5.0); ALKALINE PHOSPHATASE 68 U/L (46-116); ALT (SGPT) 44 U/L (10-68); CALC OSMOLALITY 276 mosm/kg (275-300); CHLORIDE - SERUM 101 mmol/L (98-107); CREATININE - SERUM 0.9 mg/dL (0.6-1.3); GLUCOSE 82 mg/dL (74-106); POTASSIUM - SERUM 4.2 mmol/L (3.5-5.1); PROTEIN - SERUM 7.4 g/dL (6.4-8.2); SODIUM 138 mmol/L (136-145); UREA NITROGEN 19 mg/dL (7-18); eGFR NON AFRICAN AMERICAN > 90 mL/min (90-120)
[2019-04-09 13:04] VITALS: BP 117/80
--- NOTE | 2019-04-09 13:45 | NUR ---
REQUESTED AND GIVEN 650MG TYLENOL PO FOR C/O PAIN TO LEFT FOOT LEVEL 6. WILL MONITOR.
--- NOTE | 2019-04-09 16:08 | MORECARE ---
CASE MANAGEMENT DISCHARGE SUMMARY PATIENT: SHERRIE SZYMANSKI UNIT: [id number] ADM DATE: 04/02/19 AGE: 23 : [birth year] SEX: M ROOM/BED: D.1209 AUTHOR: JOEY,DOC PHYSICIAN: REFERRING PHYSICIAN: GARRETT TOTH MD DATE OF SERVICE: 04/09/19 Discharge Plan Patient Name: SHERRIE SZYMANSKI Facility: [facility]:[place] : 1995 Planned Disposition: Psych facility Anticipated Discharge Date: Discharge Date: Expected LOS: Initial Reviewer: [id number] Initial Review Date: 04/02/2019 Generated: 04/09/19 5:08 pm Comments DCP- Discharge Planning Updated by [email or web address]: Jennie Smith on 04/09/19 3:[address] Patient Name: SHERRIE SZYMANSKI Admission Status: ER Accout number: [id number] Admission Date: 04-02-2019 : 1995 Admission Diagnosis:PNEUMONITIS DUE TO INHALATION OF FOOD AND VOMIT Attending: GARRETT TOTH Current LOS: 7 Anticipated DC Date: Planned Disposition: Psych facility Primary Insurance: MEDICAID [place] PENDING Discharge Planning Comments: PT NOW DOES NOT FEEL LIKE HE NEEDS INPATIENT. HE FEELS LIKE HE JUST NEEDS TO MOVE AWAY FROM HIS MOM. HE WANTS TO LEAVE. DR. XIONG DC'D BUT WAITING ON TIP TO OK IT. ANNETTE THE NURSE HAS CALLED DR WHELAN AT [facility] 4 TIMES WITH NO PHONE CALL BACK NOR A VISIT OF YET Machine Molder: Jennie Smith DCP- Discharge Planning Updated by [id number]: Jennie Smith on 04/08/19 12:[address] Patient Name: SHERRIE SZYMANSKI Admission Status: ER Accout number: [id number] Admission Date: 04-02-2019 : 1995 Admission Diagnosis:PNEUMONITIS DUE TO INHALATION OF FOOD AND VOMIT Attending: GARRETT TOTH Current LOS: 6 Anticipated DC Date: Planned Disposition: Psych facility Primary Insurance: MEDICAID [place] PENDING Discharge Planning Comments: STILL AWAITING PLACEMENT. [facility] WILL REEVAL WHEN PT HAS BEEN OFF THE KEPPRA AND NOTED TO HAVE BEEN FOR 24 HRS WELL NO SEIZURES WITHIN THE LAST 24 HRS. CM WILL CONTINUE TO FOLLOW Machine Molder: Jennie Smith DCP- Discharge Planning Updated by [email or web address]: Jennie Smith on 04/08/19 11:[address] Patient Name: SHERRIE SZYMANSKI Admission Status: ER Accout number: [id number] Admission Date: 04-02-2019 : 1995 Admission Diagnosis:PNEUMONITIS DUE TO INHALATION OF FOOD AND VOMIT Attending: GARRETT TOTH Current LOS: 6 Anticipated DC Date: Planned Disposition: Psych facility Primary Insurance: MEDICAID [place] PENDING Discharge Planning Comments: [facility] CALL[facility] AND [facility] HAVE NO BEDS AND SEVERAL OTHERS HAVE DENIED PLACEMENT. [facility] STATED ONCE ON PO KEPPRA THEY WILL RE EVAL.. INFORMATION SENT TO [facility] FOR RE EVAL. Machine Molder: Jennie Smith DCP- Discharge Planning Updated by [id number]: Jennie Smith on 04/07/19 8:[address] Patient Name: SHERRIE SZYMANSKI Admission Status: ER Accout number: [id number] Admission Date: 04-02-2019 : 1995 Admission Diagnosis:PNEUMONITIS DUE TO INHALATION OF FOOD AND VOMIT Attending: GARRETT TOTH Current LOS: 5 Anticipated DC Date: Planned Disposition: Psych facility Primary Insurance: MEDICAID [place] PENDING Discharge Planning Comments: [facility] contacted and information faxed to assist with inpatient Psych placement. awaiting placement choices Machine Molder: Jennie Smith DCP- Discharge Planning Updated by [email or web address]: Farhana Keller on 04/05/19 9:[address] TELEPHONE CALL TO [employer]. LEFT A VOICEMAIL AT 1434 REGARDING CONTACT PHONE NUMBERS FOR ASSISTANCE AND INFORMATION. CM ADVISED THE MOTHER THAT [employer] MAY CONTACT HER. DCP- Discharge Planning Updated by [id number]: Farhana Keller on 04/05/19 9:[address] CM HAS OBTAINED CONTACT PHONE NUMBERS FOR THE PATIENT'S AND HIS MOTHER. JAMA [id number]-[phone] . SHE LIVES IN [facility], THEY HAVE BEEN FOR A FEW MONTH. SHE STATES HE HAS BEEN HOMELESS. THEY HAVE A TWO YEAR OLD DAUGHTER WHO IS WITH THE . THE PATIENT REPORTEDLY HAS HAD TWO PREVIOUS SUICIDE ATTEMPTS. SHE STATES HE DID NOT HAVE A PSYCHIATRIST OR COUNSELOR. HE WAS REPORTEDLY ON PROZAC. HE IS A SMOKER. SHE DOES NOT KNOW OF ANY MEDICAL DIAGNOSIS. HE DID HAVE [facility] MEDICAID AT ONE TIME. CHRISTINE GONZALEZ - [phone]- MOTHER 1013 HIS MOTHER CALLED THE NURSE'S STATION TO SPEAK WITH THE NURSE ABOUT HIS STATUS. CM WAS ABLE TO SPEAK WITH HER. SHE HAD JUST PICKED HIM UP 2 DAYS PRIOR TO THIS INCIDENT. HE HAD BEEN IN [place], [place] AND HAD BEEN EVICTED. SHE LIVES AT [address] [place] [address] [place] [address]. SHE STATES SHE HAS HIS WALLET AND BELONGINGS. SHE WISHES FOR HIM TO RECEIVE SOME INPATIENT PSYCH HELP. SHE STATES SHE BROUGHT 2 PAIRS OF PANTS, 2 SHIRTS, A PACK OF NEW UNDERWEAR AND NEW SOCKS TO HIS HOSPITAL ROOM. SHE VERY MUCH WANTS HIM TO GET HELP. HE SEES SEVEN RUSSELL AT A FAMILY CLINIC IN [place], [place]. SHE PRESCRIBES HIS PROZAC. THE NURSE AND CM EXPLAINED THE PATIENT MUST BE MEDICALLY STABLE BEFORE DISCHARGING TO A PSYCH FACILITY. EXPLAINED CM WILL FOLLOW TO ASSIST. W/ DISCHARGE PLANNING. THE MOTHER WAS VERY HELPFUL AND VERY CONCERNED ABOUT HIS WELL BEING. DCP- Discharge Planning Updated by [id number]: Latonia Licea on 04/04/19 4:[address] CM contacted [employer] to see if they have been able to get any information from patient. Stefano stated that they haven't got any information either. Patient wasn't able to give any information to them either. Speech is garbled. CM has been trying to reach family but unable to get in contact with anyone. Patient couldn't give a name or number to call at this time.CM will continue to follow and assist as needed with discharge planning / needs. DCP- Discharge Planning Updated by [id number]: Latonia Licea on 04/03/19 6:[address] CM attempted to speak with patient post extubation earlier today. Patient wasn't able to answer any questions regarding address or living situation. There isn't any phone numbers listed on face sheet and patient is unable to give any phone numbers of contacts. Patient states that his stuff is missing and that is where his contacts are. Patient couldn't tell CM if he has insurance or not. Nursing stated that patient's mother and have been in to visit. CM will continue to attempt to get with family to finish d/c plan. CM will continue to follow and assist as needed with discharge planning / needs. Last DP export: 04/08/19 1:00 p Patient Name: SHERRIE SZYMANSKI Page [id number] at 1608 All edits/amendments must be made on the electronic document DICTATION DATE: 04/09/191607 QUILL PICKING MACHINE OPERATOR: PRUDENCIO 04/09/191607 RPT#: [id number] DC DATE: STATUS: ADM IN [facility] [address] [place] [address] END OF REPORT
--- NOTE | 2019-04-09 16:30 | NUR ---
DR. WHELAN OK WITH D/C HOME [facility] MOM. NO NEW ORDERS RECEIVED.
[2019-04-09 17:50] VITALS: BP 106/65
--- NOTE | 2019-04-09 18:50 | NUR ---
PATIENT IS EXCITED TO GO HOME. WAITING ON MOM TO COME AND GET HIM. ATE ALL OF SUPPER. DENIES NEEDS.
--- NOTE | 2019-04-09 21:07 | NUR ---
SPOKE WITH [employer] INSTALLER HELPER AND NOTIFIED HER THAT THE PATIENT GOT IN CONTACT WITH HIS MOM AND SHE WILL NOT BE PICKING THE PATIENT UP UNTIL TOMORROW MORNING.
[2019-04-09 22:57] VITALS: BP 122/83
[2019-04-10 05:59] VITALS: BP 105/67
[2019-04-10 07:43] VITALS: BP 111/76
--- NOTE | 2019-04-10 07:44 | NUR ---
PT AWAKE ALERT AND ORIENTED. RR EVEN AND UNLABORED. NO DISTRESS NOTED. WILL CONTINUE TO MONITOR.
--- NOTE | 2019-04-10 09:59 | NUR ---
I have reviewed this patient and I concur with the Shift Assessment completed by the Licensed Practical Nurse today this shift.
--- NOTE | 2019-04-10 10:25 | NUR ---
PT D/C PER PERSONAL VEHICHLE WITH MOTHER AND PAPERWORK SIGNED. NO FURTHER QUESTIONS. VERBALIZED UNDERSTANDING. ALL BELONGINGS SENT WITH PT.
--- NOTE | 2019-04-11 09:12 | MORECARE ---
CASE MANAGEMENT DISCHARGE SUMMARY PATIENT: SHERRIE SZYMANSKI UNIT: [id number] ADM DATE: 04/02/19 AGE: 23 : [birth year] SEX: M ROOM/BED: D.1209 AUTHOR: NANCI COOK PHYSICIAN: REFERRING PHYSICIAN: GARRETT TOTH MD DATE OF SERVICE: 04/11/19 Discharge Plan Patient Name: SHERRIE SZYMANSKI Facility: [facility]:[place] : 1995 Planned Disposition: Psych facility Anticipated Discharge Date: Discharge Date: 04/10/2019 Expected LOS: Initial Reviewer: [id number] Initial Review Date: 04/02/2019 Generated: 04/11/19 10:12 am Comments DCP- Discharge Planning Updated by [email or web address]: Jennie mSith on 04/09/19 3:[address] Patient Name: SHERRIE SZYMANSKI Admission Status: ER Accout number: [id number] Admission Date: 04-02-2019 : 1995 Admission Diagnosis:PNEUMONITIS DUE TO INHALATION OF FOOD AND VOMIT Attending: GARRETT TOTH Current LOS: 7 Anticipated DC Date: Planned Disposition: Psych facility Primary Insurance: MEDICAID [place] PENDING Discharge Planning Comments: PT NOW DOES NOT FEEL LIKE HE NEEDS INPATIENT. HE FEELS LIKE HE JUST NEEDS TO MOVE AWAY FROM HIS MOM. HE WANTS TO LEAVE. DR. XIONG DC'D BUT WAITING ON TIP TO OK IT. ANNETTE THE NURSE HAS CALLED DR WHELAN AT [facility] 4 TIMES WITH NO PHONE CALL BACK NOR A VISIT OF YET Residential Remodeling Subcontractor: Jennie Smith DCP- Discharge Planning Updated by [email or web address]: Jennie Smith on 04/08/19 12:[address] Patient Name: SHERRIE SZYMANSKI Admission Status: ER Accout number: [id number] Admission Date: 04-02-2019 : 1995 Admission Diagnosis:PNEUMONITIS DUE TO INHALATION OF FOOD AND VOMIT Attending: GARRETT TOTH Current LOS: 6 Anticipated DC Date: Planned Disposition: Psych facility Primary Insurance: MEDICAID [place] PENDING Discharge Planning Comments: STILL AWAITING PLACEMENT. [facility] WILL REEVAL WHEN PT HAS BEEN OFF THE KEPPRA AND NOTED TO HAVE BEEN FOR 24 HRS WELL NO SEIZURES WITHIN THE LAST 24 HRS. CM WILL CONTINUE TO FOLLOW Residential Remodeling Subcontractor: Jennie Smith DCP- Discharge Planning Updated by [email or web address]: Jennie Smith on 04/08/19 11:[address] Patient Name: SHERRIE SZYMANSKI Admission Status: ER Accout number: [id number] Admission Date: 04-02-2019 : 1995 Admission Diagnosis:PNEUMONITIS DUE TO INHALATION OF FOOD AND VOMIT Attending: GARRETT TOTH Current LOS: 6 Anticipated DC Date: Planned Disposition: Psych facility Primary Insurance: MEDICAID [place] PENDING Discharge Planning Comments: [facility] CALL[facility] AND [facility] HAVE NO BEDS AND SEVERAL OTHERS HAVE DENIED PLACEMENT. [facility] STATED ONCE ON PO KEPPRA THEY WILL RE EVAL.. INFORMATION SENT TO [facility] FOR RE EVAL. Residential Remodeling Subcontractor: Jennie Smith DCP- Discharge Planning Updated by [id number]: Jennie Smith on 04/07/19 8:[address] Patient Name: SHERRIE SZYMANSKI Admission Status: ER Accout number: [id number] Admission Date: 04-02-2019 : 1995 Admission Diagnosis:PNEUMONITIS DUE TO INHALATION OF FOOD AND VOMIT Attending: GARRETT TOTH Current LOS: 5 Anticipated DC Date: Planned Disposition: Psych facility Primary Insurance: MEDICAID [place] PENDING Discharge Planning Comments: [facility] contacted and information faxed to assist with inpatient Psych placement. awaiting placement choices Residential Remodeling Subcontractor: Jennie Smith DCP- Discharge Planning Updated by [id number]: Farhana Keller on 04/05/19 9:[address] TELEPHONE CALL TO [employer]. LEFT A VOICEMAIL AT 1434 REGARDING CONTACT PHONE NUMBERS FOR ASSISTANCE AND INFORMATION. CM ADVISED THE MOTHER THAT [employer] MAY CONTACT HER. DCP- Discharge Planning Updated by [id number]: Farhana Keller on 04/05/19 9:[address] CM HAS OBTAINED CONTACT PHONE NUMBERS FOR THE PATIENT'S AND HIS MOTHER. JAMA SZYMANSKIILFYRE-[phone]- . SHE LIVES IN [facility], THEY HAVE BEEN FOR A FEW MONTH. SHE STATES HE HAS BEEN HOMELESS. THEY HAVE A TWO YEAR OLD DAUGHTER WHO IS WITH THE . THE PATIENT REPORTEDLY HAS HAD TWO PREVIOUS SUICIDE ATTEMPTS. SHE STATES HE DID NOT HAVE A PSYCHIATRIST OR COUNSELOR. HE WAS REPORTEDLY ON PROZAC. HE IS A SMOKER. SHE DOES NOT KNOW OF ANY MEDICAL DIAGNOSIS. HE DID HAVE [facility] MEDICAID AT ONE TIME. CHRISTINE GONZALEZ - [phone]- MOTHER 1013 HIS MOTHER CALLED THE NURSE'S STATION TO SPEAK WITH THE NURSE ABOUT HIS STATUS. CM WAS ABLE TO SPEAK WITH HER. SHE HAD JUST PICKED HIM UP 2 DAYS PRIOR TO THIS INCIDENT. HE HAD BEEN IN [place], [place] AND HAD BEEN EVICTED. SHE LIVES AT [address] [place] [address] [place] [address]. SHE STATES SHE HAS HIS WALLET AND BELONGINGS. SHE WISHES FOR HIM TO RECEIVE SOME INPATIENT PSYCH HELP. SHE STATES SHE BROUGHT 2 PAIRS OF PANTS, 2 SHIRTS, A PACK OF NEW UNDERWEAR AND NEW SOCKS TO HIS HOSPITAL ROOM. SHE VERY MUCH WANTS HIM TO GET HELP. HE SEES SEVEN RUSSELL AT A FAMILY CLINIC IN [place], [place]. SHE PRESCRIBES HIS PROZAC. THE NURSE AND CM EXPLAINED THE PATIENT MUST BE MEDICALLY STABLE BEFORE DISCHARGING TO A PSYCH FACILITY. EXPLAINED CM WILL FOLLOW TO ASSIST. W/ DISCHARGE PLANNING. THE MOTHER WAS VERY HELPFUL AND VERY CONCERNED ABOUT HIS WELL BEING. DCP- Discharge Planning Updated by [id number]: Latonia Licea on 04/04/19 4:[address] CM contacted [employer] to see if they have been able to get any information from patient. Stefano stated that they haven't got any information either. Patient wasn't able to give any information to them either. Speech is garbled. CM has been trying to reach family but unable to get in contact with anyone. Patient couldn't give a name or number to call at this time.CM will continue to follow and assist as needed with discharge planning / needs. DCP- Discharge Planning Updated by [id number]: Latonia Licea on 04/03/19 6:[address] CM attempted to speak with patient post extubation earlier today. Patient wasn't able to answer any questions regarding address or living situation. There isn't any phone numbers listed on face sheet and patient is unable to give any phone numbers of contacts. Patient states that his stuff is missing and that is where his contacts are. Patient couldn't tell CM if he has insurance or not. Nursing stated that patient's mother and have been in to visit. CM will continue to attempt to get with family to finish d/c plan. CM will continue to follow and assist as needed with discharge planning / needs. Last DP export: 04/09/19 3:09 p Patient Name: SHERRIE SZYMANSKI Page [id number] at 0912 All edits/amendments must be made on the electronic document DICTATION DATE: 04/11/19911 SLAB PULLER: PRUDENCIO 04/11/19911 RPT#: [id number] DC DATE:04/10/19 STATUS: DIS IN [facility] [address] [place] [address] END OF REPORT
== END 2019-04-10 10:30 | disposition home or self-care (01) | DRG 208 ==
LOC: D.ER 06:04 → D.ICU 06:20 → D.M3 04-04 20:24
PROVIDERS: Emergency Medicine; Internal Medicine Nephrology; ADMIT Family Medicine; ATTEND Family Medicine
PROC: 5A1945Z Respiratory Ventilation, 24-96 Consecutive Hours (ICD-10-PCS; principal; 2019-04-02)
DX: J69.0 Pneumonitis due to inhalation of food and vomit (principal); J96.01 Acute respiratory failure with hypoxia; N17.9 Acute kidney failure, unspecified; G40.89 Other seizures; E83.42 Hypomagnesemia; F15.10 Other stimulant abuse, uncomplicated; F11.10 Opioid abuse, uncomplicated; E87.6 Hypokalemia; N18.2 Chronic kidney disease, stage 2 (mild); F17.200 Nicotine dependence, unspecified, uncomplicated; D64.9 Anemia, unspecified; T45.0X2A Poisoning by antiallergic and antiemetic drugs, intentional self-harm, initial encounter; T43.222A Poisoning by selective serotonin reuptake inhibitors, intentional self-harm, initial encounter; F32.9 Major depressive disorder, single episode, unspecified